=== PATIENT | female | born 1970 | race African-American/Black ===

== ENCOUNTER 2022-04-13 09:00 | Emergency (ER) | payer OTHER ==
[~2022-04-13] VITALS: Ht 175.3 cm; Wt 82.0 kg
[2022-04-13 09:04] VITALS: BP 111/64
[2022-04-13] MEDS ORDERED: AMLODIPINE (09:04)
[2022-04-13] MEDS ORDERED: ZOLOFT (09:04)
[2022-04-13] MEDS ORDERED: ALBUTEROL (09:04)
[2022-04-13] MEDS ORDERED: ACETAMINOPHEN 325MG TABLET PO ONE (09:30)
[2022-04-13] MEDS ORDERED: IBUPROFEN 400MG TABLET PO ONE (09:30)
[2022-04-13] MEDS ORDERED: IBUP-2028 MT (11:15)
[2022-04-13] MEDS ORDERED: TOPUD PO (11:15)
[2022-04-13] MEDS ORDERED: MORP15TA67 MT (11:16)
[2022-04-13] MEDS ORDERED: MORPHINE SULFATE 10 MG/ML CPJ IM ONE (12:00)
== END 2022-04-13 12:14 | disposition home or self-care (01) ==
LOC: ER 09:00
DX: S82.492A Other fracture of shaft of left fibula, initial encounter for closed fracture (principal); S82.292A Other fracture of shaft of left tibia, initial encounter for closed fracture; W01.0XXA Fall on same level from slipping, tripping and stumbling without subsequent striking against object, initial encounter; Y93.89 Activity, other specified; Y92.89 Other specified places as the place of occurrence of the external cause; Y99.8 Other external cause status; F41.9 Anxiety disorder, unspecified; J44.9 Chronic obstructive pulmonary disease, unspecified; F32.9 Major depressive disorder, single episode, unspecified; I10 Essential (primary) hypertension; Z88.0 Allergy status to penicillin
CPT/HCPCS: 73600; 73610; 99283; L1830; 29515

== ENCOUNTER 2023-03-28 18:18 | Emergency (ER) | payer OTHER ==
[~2023-03-28] VITALS: Ht 175.3 cm; Wt 82.0 kg
[~2023-03-28 18:18] MED LIST: ALBUTEROL; AMLODIPINE; IBUP-2028 MT; MORP15TA67 MT; TOPUD PO; ZOLOFT
[2023-03-28 18:21] VITALS: TEMP 98; O2SAT 100
[2023-03-28] MEDS ORDERED: IBUPROFEN 600MG TABLET PO STA (20:20)
[2023-03-28 20:47] VITALS: BP 167/100; PULSE 75; RESP 20
[2023-03-28 20:55] LABS: BASOPHILS % 0.4 % (0.0-2.0); EOSINOPHILS % 0.8 % (0.0-5.0); HEMATOCRIT. 38.6 % (36.0-48.0); MEAN CORPUSCULAR HEMOGLOBIN 30.8 pg (28.0-32.0); MEAN CORPUSCULAR HGB CONC 33.5 g/dL (31.0-37.0); MEAN CORPUSCULAR VOLUME 91.8 fL (81.0-99.0); MEAN PLATELET VOLUME 9.5 fl (7.4-10.4); MONOCYTES % 9.3 % (2.0-8.0); NEUTROPHILS % 68.5 % (40.0-76.0); PLATELET 218 x1000/uL (130-400); RED CELL DISTRIBUTION WIDTH 14.6 % (11.6-14.6); WHITE BLOOD COUNT 8.7 x1000/uL (4.5-11.0)
[2023-03-28 21:16] LABS: CHLORIDE 104 mEq/L (98-107); INDEX HEMOLYSI 1 (1-3); INDEX ICTERIC 1 (1-4); INDEX LIPEMIC 1 (1-3); POTASSIUM 3.3 mEq/L (3.5-5.1); SODIUM 137 mEq/L (136-145)
[2023-03-28 21:26] LABS: ALANINE AMINOTRANSFERASE 15 IU/L (13-61); ALBUMIN 3.8 g/dL (3.4-5.0); ASPARTATE AMINOTRANSFERASE 14 IU/L (15-37); BILIRUBIN TOTAL 0.5 mg/dL (0.1-1.0); CALCIUM 9.2 mg/dL (8.5-10.1); CARBON DIOXIDE 29 mEq/L (21-32); CREATININE 0.6 mg/dL (0.6-1.3); GLUCOSE 95 mg/dL (70-105); PROTEIN TOTAL 8.5 g/dL (6.0-8.3); UREA NITROGEN BLOOD 19 mg/dL (7-21)
[2023-03-28] MEDS ORDERED: DOXY100T28 MT (21:37)
[2023-03-28] MEDS ORDERED: ERYT1OIN6 EACHEYE (21:37)
[2023-03-28] MEDS ORDERED: NAPR-681 PO (21:37)
== END 2023-03-28 22:05 | disposition home or self-care (01) ==
LOC: ER 18:18
DX: H10.33 Unspecified acute conjunctivitis, bilateral (principal); Z88.0 Allergy status to penicillin
CPT/HCPCS: 36415; 70481; 80053; 85025; 99284

== ENCOUNTER 2024-07-16 12:11 | Emergency (ER) | payer OTHER ==
[~2024-07-16] VITALS: Ht 175.3 cm; Wt 80.0 kg
[~2024-07-16 12:11] MED LIST changes: +DOXY100T28 MT; +ERYT1OIN6 EACHEYE; +NAPR-681 PO
[2024-07-16 12:27] VITALS: TEMP 98.6; O2SAT 98
[2024-07-16] MEDS: DEXAMETHASONE 10 MG/ML VIAL PO ONE (15:35)
[2024-07-16] MEDS: METOCLOPRAMIDE HCL 10MG TABLET PO ONE (15:35)
[2024-07-16 16:46] VITALS: BP 142/93; PULSE 65; RESP 65; O2SAT 98
[2024-07-16] MEDS: KETOROLAC 15MG/ML VIAL IM ONE (17:06)
== END 2024-07-16 17:10 | disposition home or self-care (01) ==
LOC: ER 12:17
DX: R51.9 Headache, unspecified (principal); F41.9 Anxiety disorder, unspecified; J44.89 Other specified chronic obstructive pulmonary disease; F32.A Depression, unspecified; I10 Essential (primary) hypertension; Z88.0 Allergy status to penicillin; Z79.899 Other long term (current) drug therapy
CPT/HCPCS: 70450; 96372; 99285; J8597; J1100; J1885; Z7610